=== PATIENT | male | born 1990 | race Caucasian/White ===

== ENCOUNTER 2020-04-02 23:42 | Inpatient (IN) | payer BC ==
[~2020-04-02] VITALS: Ht 165.1 cm; Wt 67.8 kg
[2020-04-02 23:55] VITALS: Ht 165.1 cm; Wt 67.8 kg
[2020-04-03] VITALS (7 sets, daily range): BP systolic 99–120; BP diastolic 53–73
--- NOTE | 2020-04-03 00:02 | NUR ---
PT IN ED FOR RIGHT FLANK PAIN X1 DAY. STS PAIN COMES AND GOES; INCREASES WITH MOVEMENT AND WAS NOT ABLE TO SLEEP TONIGHT. PT AMBULATORY, RESP E/U, NO DISTRESS.
[2020-04-03 01:57] LABS: PLATELET COUNT 168 x10^3mcL (130-400); RED CELL DISTRIBUTION WIDTH 13.5 % (11.5-14.5)
[2020-04-03 01:58] LABS: BASOPHIL % 0 % (0-2)
[2020-04-03 02:05] LABS: CALCIUM 8.5 mg/dL (8.5-10.1); CARBON DIOXIDE 29.1 mmol/L (21-32); CHLORIDE SERUM 103 mmol/L (98-107); CREATININE SERUM 1.1 mg/dL (0.7-1.3); GFR1 > 60 mL/min; GLUCOSE SERUM 103 mg/dL (74-106); POTASSIUM SERUM 3.6 mmol/L (3.5-5.1); SODIUM SERUM 139 mmol/L (136-145)
[2020-04-03 02:09] LABS: ALBUMIN 3.8 g/dL (3.4-5.0); ALKALINE PHOSPHATASE 123 U/L (46-116); ALT/SGPT 34 U/L (16-63); AMYLASE 50 U/L (25-115); AST/SGOT 21 U/L (15-37); BILIRUBIN TOTAL 0.47 mg/dL (0.20-1.00); LIPASE 75 IU/L (73-393)
--- NOTE | 2020-04-03 02:11 | NUR ---
PT RESTING COMFORTABLY. VITAL SIGNS STABLE. RESPIRATIONS EVEN AND UNLABORED. NO ACUTE DISTRESS NOTED.
--- NOTE | 2020-04-03 03:14 | NUR ---
RECEIVED PT FROM ED VIA WHEELCHAIR ACCOMPANIED BY NURSE. PT CC: R ABD/FLANK PAIN X1 DAY AFTER EXERCISING. PT IS AAOX4. SPEECH IS CLEAR. DENIES GREEN/DIZZINESS. M/S PT. DENIES CHEST PAIN/CHEST PRESSURE. PULSES ARE PALPABLE. NO EDEMA NOTED. BREATHING IS EVEN AND UNLABORED ON RA. LUNG SOUNDS CTA. DENIES SOB. NO RESP DISTRESS NOTED. ABD IS SOFT AND NONDISTENDED. BS ACTIVE. DENIES V/D. HAS PERIODS OF NAUSEA, DENIES NAUSEA AT THIS TIME. RLQ TENDER WITH PALPATION. PT STATES PAIN IS 4/10 AT THIS TIME, BUT IS TOLERABLE. ENCOURAGED PT TO USE CALL LIGHT WHEN PAIN BECOMES INTOLERABLE. PT VERBALIZES UNDERSTANDING. VOIDS FREELY. DENIES DYSURIA. AMBULATORY. SKIN INTACT. IV TO LAC PATENT AND INTACT. NO ERYTHEMA NOTED. NS INFUSING AT 125 CC/HR. ORIENTED PT TO ROOM AND SURROUNDINGS. SIDE RAILS UP X2. PT AWARE OF BEING NPO AT THIS TIME. VERBALIZES UNDERSTANDING. BED IN LOWEST POSITION. CALL LIGHT WITHIN REACH. WILL CONTINUE TO MONITOR.
[2020-04-03 06:34] LABS: microscopic required? NO
[2020-04-03 06:42] LABS: BASOPHIL % 0.3 % (0-2); PLATELET COUNT 162 x10^3mcL (130-400); RED CELL DISTRIBUTION WIDTH 12.9 % (11.5-14.5)
--- NOTE | 2020-04-03 06:43 | NUR ---
COMFORT AND SAFETY MEASURES MAINTAINED. ALL NEEDS ASSESSED AND ATTENDED TOO. WILL CONTINUE TO MONITOR AND ENDORSE CARE TO DAY SHIFT NURSE.
[2020-04-03 07:09] LABS: CALCIUM 8.6 mg/dL (8.5-10.1); CARBON DIOXIDE 25.8 mmol/L (21-32); CHLORIDE SERUM 103 mmol/L (98-107); CREATININE SERUM 0.9 mg/dL (0.7-1.3); GFR1 > 60 mL/min; GLUCOSE SERUM 91 mg/dL (74-106); PHOSPHOROUS 4.7 mg/dL (2.5-4.9); POTASSIUM SERUM 3.7 mmol/L (3.5-5.1); SODIUM SERUM 139 mmol/L (136-145)
[2020-04-03 07:17] LABS: urine erythrocyte NEGATIVE (NEGATIVE)
--- NOTE | 2020-04-03 08:00 | NUR ---
RECEIVED PATIENT A/A/OX4; NO ACUTE DISTRESS. RLQ ABD PAIN ON 12/27; TOLERATED LEVEL. NPO FOR POSSIBLE SURGERY. IVF OF NS 100CC/HR; IV TO LAC INTACT. AMBULATORY. CALL LIGHT IN REACH.
--- NOTE | 2020-04-03 09:25 | NUR ---
SURGICAL CONSENT SIGNED. PATIENT WENT TO OR.
--- NOTE | 2020-04-03 11:30 | NUR ---
RECEIVED PATIENT FROM OR RECOVERY ROOM. PATIENT ALERT/ORIENTED X4. ABD FLAT/SOFT. SURGICAL INCISION X3, CLOSED W/ DERMABAND, CLEAN/INTACT. V/S WNL. DENIED PAIN. CONTINUE MONITOR.
--- NOTE | 2020-04-03 15:10 | NUR ---
PATIENT HAD OUT OF BAD AND VOID VIA BRP.
--- NOTE | 2020-04-03 18:21 | NUR ---
VOID X4 POST-OP. STATED HAD PASSED GAS. TOLERATED FULL LIQUID DIET. AMBULATED IN ROOM. STATED INCISIONAL PAIN ON TOLERATED LEVEL. ENDORSED CARE TO [facility] NURSE.
--- NOTE | 2020-04-03 19:30 | NUR ---
REPORT RECEIVED FROM DAY SHIFT RN. PATIENT WAS SEEN RESTING COMFORTABLY IN BED. A/OX4, BREATHING E/U ON ROOM AIR. NO SOB OR RESP DISTRESS NOTED. DENIES CHEST PAIN. NO C/O PAIN AT THIS TIME. IV TO THE LAC, 18G, INFUSING WELL. PATENT AND INTACT. NO REDNESS OR SWELLING NOTED. ABD INSICION X3 WITH DERMABOND IN PLACE, INFORMATION SYSTEMS ADMINISTRATOR. NO DRAINAGE NOTED. REPORTS HE HAS BEEN PASSING GAS; BURPING AND FLATUS AND HAS BEEN VOIDING S/P SURGERY. COMFORT AND SAFETY MEASURES IN PLACE. BED IS LOCKED AND IN LOWEST POSITION. SIDE RAILS UP X2. CALL LIGHT IS WITHIN REACH. WILL CONTINUE TO MONITOR.
--- NOTE | 2020-04-03 22:23 | NUR ---
C/O 3/10 PAIN TO ABD. REQUESTING PAIN MEDICATION. PRN TYLENOL GIVEN PER ORDER. MEDICATION EDUCATION PROVIDED. WILL CONTINUE TO MONITOR.
--- NOTE | 2020-04-04 02:10 | NUR ---
RESTING IN BED WITH EYES CLOSED. NO ACUTE DISTRESS NOTED. BREATHING E/U ON ROOM AIR. IVF INFUSING WELL. NO S/S OF PAIN NOTED. SAFETY MEASURES IN PLACE. CALL LIGHT IS WITHIN REACH. WILL CONTINUE TO MONITOR.
[2020-04-04 05:06] VITALS: BP 103/61
--- NOTE | 2020-04-04 06:00 | NUR ---
RESTED WELL THROUGHOUT THE NIGHT. NO SIGNIFICANT CHANGES TO REPORT. NO ACUTE DISTRESS NOTED. BREATHING E/U ON ROOM AIR. REPORTS HE HAS BEEN PASSING GAS. VOIDED X4. NO BM AT THIS TIME. IV TO THE LAC 18G, PATENT AND INTACT. NO REDNESS OR SWELLING NOTED. ABD INCISION X3 WITH DERMABOND. ALL NEEDS MET AND ATTENDED TO. CALL LIGHT IS WITHIN REACH. WILL ENDORSE CARE TO DAY SHIFT RN
[2020-04-04 06:34] LABS: BASOPHIL % 0.3 % (0-2); PLATELET COUNT 161 x10^3mcL (130-400); RED CELL DISTRIBUTION WIDTH 13.4 % (11.5-14.5)
[2020-04-04 07:24] LABS: CARBON DIOXIDE 30.8 mmol/L (21-32); CHLORIDE SERUM 104 mmol/L (98-107); CREATININE SERUM 0.8 mg/dL (0.7-1.3); GFR1 > 60 mL/min; GLUCOSE SERUM 84 mg/dL (74-106); MAGNESIUM 2.1 mg/dL (1.8-2.4); PHOSPHOROUS 3.7 mg/dL (2.5-4.9); POTASSIUM SERUM 4.2 mmol/L (3.5-5.1); SODIUM SERUM 140 mmol/L (136-145)
--- NOTE | 2020-04-04 08:00 | NUR ---
SHIFT ASSESSMENT DONE. PATIENT A/A/OX4. NO RESP DISTRESS. NO CHEST PAIN. AMBULATED IN [address] WAY. TOLERATED REGULAR DIET BREAKFAST. ABD INCISION WITH DERMABAND INTACT. NO REDNESS/DRAINAGE. IVF OF NS TO LAC. IV SITE CLEAN. ENCOURAGE TO AMBULATE IN ROOM TOLERATED. CALL LIGHT IN REACH.
[2020-04-04] MEDS ORDERED: NORCO1 TA2 PO (08:40)
[2020-04-04 09:00] VITALS: BP 118/64
[2020-04-04 09:41] VITALS: BP 118/64
--- NOTE | 2020-04-04 11:40 | NUR ---
HAD BM X2. STATED ABD INCISONAL PAIN ON 11/26. TOLERATED. AMBULATORY. D/C TO HOME PER ORDER. INSTRUCTION GIVEN. IV D/C'D. OVER NEEDLE CATHETER INTACT. CONDITION STABLE.
== END 2020-04-04 11:53 | disposition home or self-care (01) | DRG 343 ==
LOC: ED 23:42 → MU 04-03 02:30
PROVIDERS: Emergency Medicine; Surgery; ADMIT Family Medicine
PROC: 0DTJ4ZZ Resection of Appendix, Percutaneous Endoscopic Approach (ICD-10-PCS; principal; 2020-04-03 10:00)
DX: K35.80 Unspecified acute appendicitis (principal)
CPT/HCPCS: G0378; J2001; J2175; J2250; J2543; J3010; J3490; J7030; Q0092; Q9967